=== PATIENT | male | born 1990 | race Caucasian/White ===

== ENCOUNTER 2025-10-27 15:02 | Outpatient (REF) | payer BC, SELFPAY ==
--- OUTSIDE RECORDS SUMMARY | 2018-09-27 10:47 | XMS_ITS | Encounter Summary ---
Author Organization Formerly [facility] Address [address] [place] [id number] Care Team Providers Care Property Site Manager Name Role Phone Pcp, No Primary Care Provider Unavailabl e Encounter Details Date Type Department Care Team (Late st Contact Info) Description 09/27/2018 10:47 AM EST Hospital Encounter [facility] [address] [place] [id number] Tucker Bernabe MD [address] [place] [address] Social History Tobacco Use Types Packs/Day Years Used Date Smoking Tobacco: Never Assessed Sex and Gender Information Value Date Recorded Sex Assigned at Not on file Legal Sex Male 10:28 AM EST Gender Identity Not on file Sexual Orientation Not on file COVID-19 Exposure Response Date Recorded In the last 10 days, have yo u been in contact with someone who was confirmed or suspected to have Coronavirus/COVID-19? Unable to assess 02/05/2023 9:13 AM EDT documented as of this encounter Plan of Treatment Not on file documented as of this encounter Procedures Procedure Name Priority Date/Time Associated Diagnosis Comments XR ELBOW 3+ VIEWS-RIGHT Routine 09/27/2018 10:53 AM EST Pain and swelling of right elbow documented in this encounter Results * XR Elbow 3+ views-Right (09/27/2018 10:53 AM EST) Anatomical Region Laterality Modality Elbow Right Computed Radiogr aphy 09/27/2018 10:5 6 AM EST Impressions 09/27/2018 10:57 AM EST 1.No evidence of fracture involving the right elbow. Narrative 09/27/2018 10:57 AM EST CLINICAL: Elbow pain and swelling after punching a door with hyperextension COMPARISON: None. TECHNIQUE: AP, lateral, and oblique radiographs of the right elbow. FINDINGS: No fracture, dislocation or joint effusion. The joint spaces are well-maintained. Well-corticated bony densities along the the radial aspect of the joint. Procedure Note Mir Jones MD - 09/27/2018 CLINICAL: Elbow pain and swelling after punching a door withhyperextension COMPARISON: None. TECHNIQUE: AP, lateral, and oblique radiographs of the right elbow. FINDINGS: No fracture, dislocation or joint effusion. The joint spaces are well-maintained. Well-corticated bony densities along the the radial aspect of the joint. IMPRESSION: 1.No evidence of fracture involving the right elbow. us AFSHIN Palomino IMG DIAGNOSTIC IMAGING ORDERABL ES Final Result documented in this encounter Visit Diagnoses Not on filedocumented in this encounter Care Teams Property Site Manager Relationship Specialty Start Date End Date Pcp, No PCP - General General Medicine 09/27/18 documented as of this encounter
--- NOTE | 2025-10-27 15:08 | EMG_ITS ---
ADDENDUM: NOTE CORRECTION MADE ON THIS REPORT. PATIENT'S SYMPTOMS ARE LEFT SIDED. THE TEST WAS CORRECTLY DONE ON LEFT SIDE. Chief complaint: LEFT wrist pain, on and off finger numbness Reason for referral: Evaluate for Carpal Tunnel Syndrome Referred by: Andrea PEPE Procedure done: LEFT upper extremity NCS/EMG Precautions and/or limitations: None The limb temperature was monitored continuously and remained between 32-36 degrees C during the performance of the NCS. Nerve Conduction Studies Anti Sensory Summary Table ?Stim Site NR Onset (ms) Norm Onset (ms) Peak (ms) Norm Peak (ms) O-P Amp (?V) Norm O-P Amp Site1 Site2 Delta-0 (ms) Dist (cm) Tim (m/s) Norm Tim (m/s) Left Median Anti Sensory (2nd Digit) Wrist ? 2.3 3.3 <3.6 32.5 >10 Wrist 2nd Digit 2.3 14.0 61 Left Radial Anti Sensory (Thumb) Forearm ? 1.8 2.3 <3.1 26.8 Forearm Thumb 1.8 0.0 Left Ulnar Anti Sensory (5th Digit) Wrist ? 2.3 3.2 <3.7 42.1 >15.0 Wrist 5th Digit 2.3 14.0 61 Motor Summary Table ?Stim Site NR Onset (ms) Norm Onset (ms) O-P Amp (mV) Norm O-P Amp iAmp (mV) Amp (1st) (%) Site1 Site2 Delta-0 (ms) Dist (cm) Tim (m/s) Norm Tim (m/s) Left Median Motor (Abd Poll Brev) Wrist ? 3.4 <3.9 12.8 >4.5 14.3 100.0 Elbow Wrist 4.5 22.0 49 >45 Elbow ? 7.9 10.3 12.7 80.5 Left Ulnar Motor (Abd Dig Minimi) Wrist ? 2.7 <3.0 8.7 >5 9.8 100.0 B Elbow Wrist 3.8 22.0 58 >45 B Elbow ? 6.5 8.4 9.9 96.6 A Elbow B Elbow 1.3 10.0 77 >45 A Elbow ? 7.8 8.1 9.6 93.1 EMG ?Side Muscle Nerve Root Ins Act Fibs Psw Amp Dur Poly Recrt Int Pat Comment Left 1stDorInt Ulnar C8-T1 Nml Nml Nml Nml Nml 0 Nml Complete Left FlexCarRad Median C6-7 Nml Nml Nml Nml Nml 0 Nml Complete Left Biceps Musculocut C5-6 Nml Nml Nml Nml Nml 0 Nml Complete Left Triceps Radial C6-7-8 Nml Nml Nml Nml Nml 0 Nml Complete Left Deltoid Axillary C5-6 Nml Nml Nml Nml Nml 0 Nml Complete FINDINGS: All motor and sensory nerves tested showed normal latencies, amplitudes and conduction velocities. Concentric needle EMG was performed in selected muscles of the LEFT upper extremity. Study did not reveal signs of electric abnormalities as shown in the table above. IMPRESSION: 1. This is a normal study. 2. There is no electrodiagnostic evidence for median neuropathy, ulnar neuropathy, brachial plexopathy, or cervical radiculopathy. Thank you for your kind referral. Kacie Fam MD, ANNAMARIA Board Certified, [place] Board [employer] and Rehabilitation (ABPMR) Board Certified, [place] Board of Electrodiagnostic Medicine (ABEM) CODIN 90273 x 1 extremity MTDD
--- OUTSIDE RECORDS SUMMARY | 2025-10-27 19:06 | XMS_ITS | Clinical Summary ---
Author Organization [facility] Address [address] [place] [address] Care Team Providers Care Director Private Name Role Phone Pcp, No Primary Care Provider Unavailabl e Allergies No known active allergies Medications cephalexin (KEFLEX) 500 MG capsuleIndicatio ns:Cellulitis of right lower leg Take 1 capsule (500 mg total) by mouth 3 (three) times a day. 24 capsule 0 Active amoxicillin (AMOXIL) 500 MG capsuleIndicatio ns:Dental infection Take 1 capsule (500 mg total) by mouth 2 (two) times a day. 14 capsule 3 Active triamcinolone (KENALOG) 0.1 % ointmentIndicati ons:Insect bite, unspecified site, initial encounter Apply topically 2 (two) times a day. 15 g 3 Active Social History Tobacco Use Types Packs/Day Years Used Date Smoking Tobacco: Never Assessed Sex and Gender Information Value Date Recorded Sex Assigned at Not on file Legal Sex Male 10:28 AM EST Gender Identity Not on file Sexual Orientation Not on file Last Filed Vital Signs Vital Sign Reading Time Taken Comments Blood Pressure 161/105 02/05/2023 9:30 AM EDT Pulse 70 02/05/2023 9:30 AM EDT Temperature 36.8 C (98.2 F) 02/05/2023 9:30 AM EDT Respiratory Rate - - Oxygen Saturation 100% 02/05/2023 9:30 AM EDT Inhaled Oxygen Concentration - - Weight 90.7 kg (200 lb) 02/05/2023 9:30 AM EDT Height 180.3 cm (5' 11 ) 02/05/2023 9:30 AM EDT Body Mass Index 27.89 02/05/2023 9:30 AM EDT Plan of Treatment Health Maintenance Due Date Last Done Comments Hepatitis C Virus Screening 1988 HIV Screening 2001 DTaP/Tdap/Td Vaccines (1 - Tdap) 2007 Hepatitis B Vaccines (1 of 3 - 19+ 3-dose series) 2007 Influenza Vaccine 06/23/2025 12/12/2020 COVID-19 Vaccine (1 - 2023-2 5 season) 2025 HPV Vaccines (No Doses Required) Completed Pneumococcal Vaccine: Pediat zee (0-5 Years) and At-Risk Patients (6 to 49 Years) Aged Out No longer eligible b ased on patient's age to complete this topic Insurance INDIVIDUAL EXCHANGE PPO Care Teams Director Private Relationship Specialty Start Date End Date Pcp, No PCP - General General Medicine 09/27/18
--- OUTSIDE RECORDS SUMMARY | 2025-10-27 19:06 | XMS_ITS | Clinical Summary ---
Author Organization [facility] Prior to 04/22/[address] [place] [id number] Care Team Providers Care Clinical Trials Specialist Name Role Phone Unavailable Primary Care Provider Unavailabl e Allergies No known active allergies Medications No known medications Social History Tobacco Use Types Packs/Day Years Used Date Smoking Tobacco: Some Days Smokeless Tobacco: Never Sex and Gender Information Value Date Recorded Sex Assigned at Male 2021 6:49 PM EDT Gender Identity Not on file Sexual Orientation Not on file Job Start Date Occupation Industry Not on file Not on file Not on file Last Filed Vital Signs Vital Sign Reading Time Taken Comments Blood Pressure 144/99 2021 6:54 PM EDT Pulse 106 2021 6:54 PM EDT Temperature 36.2 C (97.2 F) 2021 6:54 PM EDT Respiratory Rate 16 2021 6:54 PM EDT Oxygen Saturation 97% 2021 6:54 PM EDT Inhaled Oxygen Concentration - - Weight 90.7 kg (200 lb) 2021 6:54 PM EDT Height 180.3 cm (5' 11 ) 2021 6:54 PM EDT Body Mass Index 27.89 2021 6:54 PM EDT Plan of Treatment Not on file
--- OUTSIDE RECORDS SUMMARY | 2025-10-27 19:06 | XMS_ITS ---
Author Name [facility] Organization Unknown History of Medication Use Medication Directions Dispensed Refills Start Date End Date Stat us amoxicillin (AMOXIL) 500 MG capsule Take 1 capsule (500 mg total) by mouth 2 (two) times a day. 02/05/2023 02/13/2023 active triamcinolone (KENALOG) 0.1 % ointment Apply topically 2 (two) times a day. 02/05/2023 active cephalexin (KEFLEX) 500 MG capsule Take 1 capsule (500 mg total) by mouth 3 (three) times a day. 01/04/2020 active Problems Problem Status Onset Date Problem Type Date of Resoluti on Source Insect bite, unspecified site, initial encounter active EncounterDiagnosisAct H HCCT Dental infection active EncounterDiagnosisAct HHCCT Encounters Encounter Type Encounter Reason Primary Diagnosis Location Date Ambulatory Periapical absce ss without sinus [facility] 02/05/2023 Care Team Organization Name Specialty Phone Email Start Date End Da te [facility] 07/12/2025 [email or web address] NO PCP Primary Care 02/05/2023 02/05/2023 [email or web address] PCP,No Primary Care 02/05/2023
== END 2025-10-27 15:03 | disposition home or self-care (01) ==
LOC: HO.NEURO 15:02
PROVIDERS: Visit Provider Physician Assistant
DX: G56.02 Carpal tunnel syndrome, left upper limb (principal); M25.531 Pain in right wrist; R20.0 Anesthesia of skin
CPT/HCPCS: 95886; 95909

== ENCOUNTER → 2025-10-27 15:08 | Outpatient (BNV) | payer BC, SELFPAY | PROVIDERS: Visit Provider Physical Medicine & Rehabilitation | DX: R20.2 Paresthesia of skin (principal); R20.0 Anesthesia of skin; M25.531 Pain in right wrist | CPT/HCPCS: 95886; 95909 ==

== ENCOUNTER 2025-11-03 08:50 | Outpatient (AMB) | payer BC, SELFPAY ==
--- NOTE | 2025-11-03 09:00 | A.PHYSOV_ITS ---
Vital Signs 11/03/25 09:01 Height 5 ft 11 in Weight 208 lb BMI 29.0 Intake Visit Reasons: EMG followup Intake Note: Patient is a35 year old male here for EMG results. Allergies No Known Allergies Allergy (Verified 11/03/25 07:14) HPI Comments Details: History of Present Illness The patient is a 35 year old male presenting for follow-up of left hand pain and numbness. He reports intermittent numbness in his left hand and sharp pain throughout his hand and wrist, with the last severe episode occurring last . He denies any associated neck or shoulder pain. An EMG of the left upper extremity performed on October 27, 2025 was normal, with no evidence of carpal tunnel syndrome. 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 Pain Description - Onset and Timing: The patient reports intermittent symptoms, with the last episode of bad pain occurring last . - Quality and Character: He describes sharp pain that goes through his whole hand. - Primary Location: Pain is felt throughout the hand and wrist, including on both sides of the wrist. - Exacerbating Factors: Pain is a problem at his work, which involves fabricating metal, using both hands, and lifting. Results - Tests and Diagnostics: - EMG of the left upper extremity on October 27, 2025, was a normal study. [facility] Social History (Updated 11/03/25 @ 07:12 by Lore Fitzpatrick MA) Alcohol intake: current Comment: occasional Patient Tobacco Use Status: Never used Tobacco Use of substances other than those prescribed or required for medical reasons: No Current occupational status: employed Review of Systems Narrative Review of Systems - Neurological: Reports intermittent left hand numbness and sharp pain in the left hand and wrist. - Musculoskeletal: Denies neck pain and shoulder pain. Physical Exam Exam Exam: Physical Exam Cervical Spine: Full range of motion cervical spine. Nontender. Special Tests: Axial Compression test: Negative Spurlings test: Negative Lhermitte's sign is Negative Upper Extremities: Full range of motion bilateral upper extremities. 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 Positive Tinel test on the left. No thenar atrophy. Neuro: Sensation: Intact to upper extremities bilateral to light touch Strength C5 (Elbow Flexion): 5/5 on the left and 5/5 on the right. C6 (Elbow Ext): 5/5 on the left and 5/5 on the right. C7 (Elbow Ext): 5/5 on the left and 5/5 on the right. C8 (Finger Flex): 5/5 on the left and 5/5 on the right. T1 (Finger Abd/Add): 5/5 on the left and 5/5 on the right. DTR: C5 (Biceps): Left 2 Right 2 C6 (Brachioradialis): Left 2 Right 2 C7 (Triceps): Left 2 Right 2 Baez sign: Negative No pathologic clonus. No involuntary movement. Vital Signs: BMI result Body Mass Index 29.0 Office Procedures AMB Carpal Tunnel Injection AMB Carpal Tunnel Injection Details: Left Carpal tunnel injection. Patient was educated about the risks, complications and benefits of the procedure including but not limited to increased serum glucose, infection, nerve damage, bleeding, tendon/ligament damage and pain. Patient's questions were answered. Verbal consent was obtained. I cleansed the volar aspect of the wrist in line with the fourth digit, 1 cm proximal to the crease of the wrist with Betadine, 20 mg of Kenalog was injected into the carpal tunnel with a 25-gauge needle. Patient denied any paresthesia. The patient tolerated the procedure well without immediate complication. Patient was cleansed with alcohol prep and a Band-Aid was applied. Carpal Tunnel Injection -41432: Left All charges added?: Procedure code (CPT) selection complete Office Meds Kenalog 40 mg/mL suspension for injection Performing Provider: AFSHIN Bateman [facility] Administered by: AFSHIN Bateman on 11/06/25 12:17 Dose Route Admin Location Dispensed Lot Number Expiration Date [facility] [employer] 20 mg peripheral nerve block 1 mL [id number] 9-1 [employer] Total Dispensed Waste 1 mL 50 % Assessment & Plan Assessment & Plan (1) Cervicalgia: Code(s): M54.2 - Cervicalgia Category: Medical (2) Carpal tunnel syndrome, left: Code(s): G56.02 - Carpal tunnel syndrome, left upper limb Category: Medical Plan Pain Management - Affect: The patient expresses that he does not want to continue dealing with the pain. - Analgesia: Current pain is not severe, but a carpal tunnel injection was discussed and agreed upon for treatment. 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 - Aberrant Drug-Related Behaviors: None noted. Plan Patient was informed and verbally consented to the use of an ambient scribe for clinic note documentation during this visit. 1. Left Carpal Tunnel Syndrome The patient presents with symptoms suggestive of carpal tunnel syndrome, including intermittent numbness and pain in the left hand and wrist. 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 Surgery is not indicated at this time due to the normal EMG findings. A left carpal tunnel cortisone injection will be administered today as a diagnostic and therapeutic measure to decrease inflammation. If his symptoms improve, it will support a subclinical carpal tunnel diagnosis, with expected relief for approximately six to eight months. If symptoms worsen, a repeat EMG may be considered in one year. Discussion Notes I discussed with the patient that his recent EMG of the left upper extremity was normal and did not show evidence of carpal tunnel syndrome. I explained that his symptoms are still consistent with carpal tunnel, and the test may be normal if the condition is in its early stages. I offered a carpal tunnel injection as a treatment option, which could also serve as a diagnostic tool. I informed him that if the injection provides relief, it supports the diagnosis, and the effect could last for six to eight months. I explained that surgery is not currently warranted. I reviewed the risks of the injection, including infection, bleeding, and nerve damage, and noted that measures are taken to prevent these. The patient expressed understanding and consented to proceed with the left carpal tunnel injection today. I confirmed with him that he would be comfortable driving post-procedure, as it will only cause localized soreness. Patient Instructions - You received a cortisone shot in your left wrist today to help with pain and inflammation. - Keep an eye on your symptoms. If your pain gets significantly worse, please c ontact our office. - The injection may help for several months but is not a permanent solution. - It is normal to feel sore in your wrist for a short time, like you had a shot in your arm. - Surgery is not recommended at this time because your nerve test was normal. - If the shot helps with your symptoms, it makes it more likely that you have carpal tunnel syndrome. Orders: Orders AMB Carpal Tunnel Injection 11/03/25 G56.02 - Carpal tunnel syndrome, left upper limb Coding Level of Care Code Tele Est Pt Level 3 (45496) Diagnoses Cervicalgia M54.2 Carpal tunnel syndrome, left G56.02 CPT Codes AMB Carpal Tunnel Injection - Carpal Tunnel Therapeutic Injection - 47855: Left ([id number])
[2025-11-03 09:01] VITALS: BMI 29.0
== END 2025-11-03 09:29 | disposition home or self-care (01) ==
LOC: HO.HPHYS 08:50
PROVIDERS: Visit Provider Physician Assistant
DX: M54.2 Cervicalgia (principal); G56.02 Carpal tunnel syndrome, left upper limb
CPT/HCPCS: 20526; 99213

== ENCOUNTER → 2025-11-03 08:50 | Outpatient (BNVA) | payer BC, SELFPAY | PROVIDERS: Visit Provider Physician Assistant | DX: M54.2 Cervicalgia (principal); G56.02 Carpal tunnel syndrome, left upper limb | CPT/HCPCS: 20526; J3301 ==